=== PATIENT | male | born 1935 | race Caucasian/White ===

== ENCOUNTER → 2025-01-08 08:21 | Outpatient (REF) | payer MEDICARE, OTHER, SELFPAY | LOC: RAD 08:21 | PROVIDERS: ATTENDING PHYSICIAN Internal Medicine Hematology & Oncology; FAMILY PHYSICIAN Family Medicine | DX: C61 Malignant neoplasm of prostate (principal); E78.5 Hyperlipidemia, unspecified | CPT/HCPCS: 78306; A9503 ==